=== PATIENT | male | born 1955 | race Caucasian/White ===

== ENCOUNTER → 2017-03-06 | Outpatient (CLI) | payer BC ==
[~2017-03-06] MED LIST: BARIUM SUSPENSION 2.1% (VANILLA SILQ) 450 ML PO ONE; CATHETER FLUSH 10 ML SYR IV PRN; IOHEXOL 350 MG/ML 100 ML (OMNIPAQUE 350) VIAL IV ONE; NS 100 ML (IVPB) BAG IV ONE
--- NOTE | 2017-03-06 13:27 | Diagnostic Imaging Report ---
PROCEDURE: CT abdomen and pelvis with contrast. TECHNIQUE: Multiple contiguous axial images were obtained through the abdomen and pelvis after administration of intravenous contrast. INDICATION: Prostate cancer. 100 mL of Omnipaque 350 was administered intravenously. FINDINGS: The lung bases appear clear. The liver, the gallbladder, the pancreas, the spleen, and adrenal glands appear unremarkable. The kidneys have symmetric enhancement and contrast excretion. There is no hydronephrosis. The urinary bladder appears unremarkable. The prostate gland is near the upper limits of normal in size at 4.4 CM in transverse dimension with nonspecific calcification seen. There is no bowel obstruction. There is no significant free fluid or fluid collection in the abdomen or pelvis. There is a nonspecific 0.7 cm external iliac lymph nodes on the left side, image 71 series 2, a nonspecific finding at this size. Similar sized lymph node is also seen along the right external iliac artery station. No significant enlargement of the abdominal or pelvic lymph nodes. The osseous structures demonstrate prominent degenerative changes with significant sclerotic degenerative change in the left SI joint noted. Tiny sclerotic focus along the anterior aspect of the right iliac bone near the level of the anterior inferior iliac spine measuring 8 mm is nonspecific as well as a posterior right iliac sclerotic focus measuring 4 mm. Another sclerotic focus measuring 5 mm is seen near the distal trochanter of the right femur. Bony islands versus early metastasis are main considerations. IMPRESSION: 1. Nonspecific linear prominent bilateral external iliac lymph nodes measuring up to 0.7 cm seen. This could be reactive nodes or early metastasis. Followup exams recommended. 2. Nonspecific subcentimeter sclerotic lesions in the right iliac bone and the near the right lesser trochanter. Dictated by: Dictated on workstation # [id number]
--- NOTE | 2017-03-06 17:59 | Diagnostic Imaging Report ---
Whole body bone scan. Technique: After the intravenous administration of 25 mCi of Technetium 99m MDP, whole body delayed phase bone scan images were obtained with lateral views of the head and neck and the chest regions. Indication: Prostate cancer. Findings: There are mild foci of increased activity seen in the cervical spine, shoulders, SI joints, the knees and ankles and around the sternoclavicular and chondrosternal joints suggestive of degenerative changes. No suspicious lesions of intense activity within the axial skeleton particularly to suggest metastasis. Urinary tract activity is seen as expected. The tiny sclerotic foci in the pelvis seen on CT scan are perhaps related to bony islands although they are too small for accurate assessment by bone scan. IMPRESSION: Findings likely degenerative with no scintigraphic evidence of osseous metastasis. Dictated by: Dictated on workstation # [id number]
== END ==
LOC: CARD 11:48
PROVIDERS: ATTEND Urology
DX: C61 Malignant neoplasm of prostate (principal)
CPT/HCPCS: 74177; 78306

== ENCOUNTER 2017-08-28 13:00 | Outpatient (CLI) | payer BC ==
[~2017-08-28] VITALS: Ht 175.3 cm; Wt 97.5 kg
[~2017-08-28 13:00] MED LIST changes: +AMLO5TAB2 PO; -BARIUM SUSPENSION 2.1% (VANILLA SILQ) 450 ML PO ONE; -CATHETER FLUSH 10 ML SYR IV PRN; -IOHEXOL 350 MG/ML 100 ML (OMNIPAQUE 350) VIAL IV ONE; +LOSA100T28 PO; -NS 100 ML (IVPB) BAG IV ONE
== END 2017-08-28 13:28 ==
LOC: PREOP 13:00
PROVIDERS: ATTEND Urology
DX: Z01.818 Encounter for other preprocedural examination (principal); C61 Malignant neoplasm of prostate

== ENCOUNTER 2017-08-30 06:08 | Inpatient (IN) | payer BC ==
[~2017-08-30] VITALS: Ht 175.3 cm; Wt 97.5 kg
[2017-08-30] MEDS: LACTATED RINGERS 1,000 ML IV PRN ×2 (06:30→12:59)
[2017-08-30 06:39] LABS: BASOPHILS % (AUTO) 0 % (0-10); EOSINOPHILS # (AUTO) 0.2 10^3/uL (0.0-0.3); EOSINOPHILS % (AUTO) 2 % (0-10); LYMPHOCYTES % (AUTO) 27 % (12-44); MEAN CORPUSCULAR HEMOGLOBIN 30 PG (25-34); MEAN CORPUSCULAR HGB CONC 35 G/DL (32-36); MEAN CORPUSCULAR VOLUME 85 FL (80-99); MEAN PLATELET VOLUME 10.5 FL (7.4-10.4); MONOCYTES # (AUTO) 0.6 X 10^3 (0.0-1.0); MONOCYTES % (AUTO) 7 % (0-12); NEUTROPHILS # (AUTO) 4.7 X 10^3 (1.8-7.8); NEUTROPHILS % (AUTO) 63 % (42-75); PLATELET COUNT 250 10^3/uL (130-400); RED CELL DISTRIBUTION WIDTH 12.8 % (10.0-14.5); WHITE BLOOD COUNT 7.5 10^3/uL (4.3-11.0)
[2017-08-30] MEDS ORDERED: MIDAZOLAM 2 MG/2 ML (VERSED) VIAL IV ONE (07:00)
[2017-08-30] MEDS ORDERED: fentaNYL INJECTION 100 MCG/2 ML AMP ONE ×2 (07:02→12:38)
[2017-08-30] MEDS ORDERED: DEXAMETHASONE 10 MG/ML (DECADRON) 1 ML VIAL ONE (07:02)
[2017-08-30] MEDS ORDERED: ROCURONIUM 50 MG/5 ML (ZEMURON) VIAL IV ONE ×3 (07:02→10:44)
[2017-08-30] MEDS ORDERED: ONDANSETRON 4 MG/2 ML (SDV) Z0FRAN ONE (07:02)
[2017-08-30] MEDS ORDERED: MIDAZOLAM 2 MG/2 ML (VERSED) VIAL ONE (07:02)
[2017-08-30] MEDS ORDERED: proPOfol 200 MG/20 ML (DIPRIVAN) VIAL IV ONE (07:02)
[2017-08-30] MEDS ORDERED: LIDOCAINE PF 2% 5 ML (XYLOCAINE) VIAL ONE (07:02)
[2017-08-30 07:12] VITALS: BP 165/96
[2017-08-30] MEDS ORDERED: ceFAZolin 2 GM/50 ML NS 50 ML ONE (07:34)
[2017-08-30] MEDS ORDERED: ceFAZolin 2 GM/50 ML NS 50 ML IV ONE (08:00)
[2017-08-30] MEDS ORDERED: PHENYLEPHRINE 100 MCG/ML 10 ML (ANESTHESIA) SYR ONE (08:05)
[2017-08-30] MEDS ORDERED: ceFAZolin 1,000 MG (ANCEF) VIAL IV ONE (11:45)
[2017-08-30] MEDS ORDERED: NEOSTIGMINE (BLOXIVERZ ) 1 MG/1ML 10 ML VIAL ONE (13:00)
[2017-08-30] MEDS ORDERED: GLYCOPYRROLATE 0.2 MG/ML (ROBINUL) 2 ML VIAL ONE (13:00)
[2017-08-30] MEDS ORDERED: DOCUSATE SODIUM 100 MG (COLACE) CAP PO PRN (13:15)
[2017-08-30] MEDS ORDERED: ONDANSETRON 4 MG/2 ML (SDV) Z0FRAN IV PRN (13:15)
[2017-08-30] MEDS ORDERED: ANTACID SUSP 30 ML UDC (MYLANTA) PO PRN (13:15)
[2017-08-30] MEDS ORDERED: ZOLPIDEM 5 MG (AMBIEN) TAB PO PRN (13:15)
[2017-08-30] MEDS ORDERED: KETOROLAC 30 MG/ML VIAL IV PRN (13:15)
[2017-08-30] MEDS ORDERED: SIMETHICONE 80 MG (MYLICON) CHEW PO PRN (13:15)
[2017-08-30] MEDS ORDERED: SEVOFLURANE (ULTANE) 15 ML INHAL SOLN ONE (13:28)
[2017-08-30 15:20] VITALS: BP 130/65
[2017-08-30] MEDS: LACTATED RINGERS 1,000 ML IV SCH ×2 (15:50→15:56)
[2017-08-30] MEDS: HYDROcodone/APAP 7.5 MG/325 MG (LORTAB, LORCET PLUS) TABLET PO PRN ×2 (15:56→22:04)
[2017-08-30 16:03] VITALS: BP 137/77
[2017-08-30] MEDS ORDERED: INFLUENZA TRIvalent 2017-2018 0.5 ML/45 MCG SYR IM ONE (17:15)
--- NOTE | 2017-08-30 19:02 | OPERATIVE REPORT ---
DATE OF SERVICE: 08/30/2017 PREOPERATIVE DIAGNOSIS: Stage T1c Edison 6 adenocarcinoma of the prostate. POSTOPERATIVE DIAGNOSIS: Stage T1c Rems[place] 6 adenocarcinoma of the prostate. PROCEDURE: Robot-assisted laparoscopic prostatectomy with bilateral nerve-sparing approach. SURGEON: Stacia Alcazar MD ELECTRICIAN AIRCRAFT SURGEON: Dr. Marissa Hall. BLOOD LOSS: 200 mL. COMPLICATIONS: None. SPECIMENS: Prostate and seminal vesicles. ANESTHESIA: General endotracheal anesthesia. INDICATIONS FOR THE OPERATION: All outlined in my urology clinic note, but briefly this is a 62-year-old otherwise healthy gentleman, found to have a PSA of 4.8. He then had an evaluation with a biopsy revealing 4 out of 12 cores positive for Remsen 6 cancer. The patient came in to discuss surgical management and ultimately chose to do a robotic prostatectomy. He is aware of the advantages and disadvantages, risks and benefits and has signed informed consent. He has had IV antibiotics and mechanical bowel prep and states that he has had all questions answered to his satisfaction. DESCRIPTION OF PROCEDURE: After this man prepped and draped in the usual sterile fashion, placed in a low lithotomy position and padded throughout on his elbows, hands and legs with SCDs applied. Then, subsequently we made a small incision in the midline after lifting up on the supraumbilical region and introduced a Veress needle and once we were sure we were intraperitoneal, we insufflated to 15 mL of pressure. Subsequently placed our trocars in the usual fashion under direct visualization and after doing so docked the robot and began with our typical instrumentation. The first thing that occurred was we found multiple adhesions throughout the abdomen, those were released allowing the bowel to drop back toward the head as the patient was in Trendelenburg position. Subsequent to that, I then went across the urachal remnant with electrocautery and followed the medial umbilical ligaments back to the vas deferens bilaterally. I harvested a piece of the vas deferens to bolster the bladder neck anastomosis. Once this was done, I used the third arm of the robot to put traction on the urachal remnant of the bladder and expose the space of Retzius down to the prostate. After the prostate was defatted, I opened the endopelvic fascia and took down the puboprostatic ligaments with electrocautery and then stapled across the dorsal venous complex. Subsequent to this, I then used the endovascular stapler to staple across the dorsal venous complex and then switched to a 30-degree down orientation on my lens. Once this was done, I went across the junction between the base of the bladder and the base of the prostate and when the Jones catheter that had been inserted with a Vicryl suture on the end of it was visualized. I then inserted a Isacc-Ricco into the pelvis and lifted up on the Vicryl suture placing the Jones catheter on penile traction. Subsequent to that, I could then identify ureteral orifices one across the posterior bladder neck completely exposing the seminal vesicles and ampulla. I had a very difficult time with this portion of the operation because this man had such a stuck prostate and it was very stuck posterior to the bladder and all along the seminal vesicles. I was able to completely dissect out seminal vesicles and transect the ampulla 1 cm proximal to the junction with the prostate. Once this was done, I was then able to release the Jones catheter traction. I used 1 Hem-o-daryl clip for each vascular pedicle and transected with scissors and then did a high anterior release on the neurovascular bundles and dissected those off from the 2 o'clock position on the prostate all the way to the 10 o'clock position on the contralateral prostate from the base of the prostate all the way to the apex. Once that neurovascular veil was released and I used minimal cautery doing that, I then switched back to a 0-degree lens. I then replaced the Jones catheter that I previously removed and took down what was left of the dorsal venous complex and dissected out the longest urethral stump possible. I then transected that stump and placed the prostate in an EndoCatch bag for later removal. At this point, we irrigated until clear and saw 2 areas that were bleeding, stopped those with a 4-0 Monocryl in a [id number] fashion. Those needles were removed from the abdomen and had an accurate sponge and needle count at this point. I then introduced into the abdomen 2/8 and 1/2 inch pieces of 2-0 Monocryl tied together and sutured across the piece of the vas deferens to bolster the bladder neck anastomosis. Starting at the 6 o'clock position on the bladder neck and suturing the same position on urethral stump, then a running suture on the left with a blue suture on the right with a clear suture and at the 12 o'clock position, I transitioned my stitch across the midline and finished my sewing over a 20-Peruvian Silastic catheter with 10 mL placed in the balloon. After tying down the sutures watertight and removing the needles from the abdomen and having an accurate sponge and needle count, I then tied down those sutures watertight, irrigated the bladder until clear and saw no leak. We then removed the EndoCatch bag in the midline for later removal and I was then able to place a 19-Peruvian Hermes drain next to the anastomosis brought in the ____ site in the left lower quadrant and sutured in place with a 2-0 silk interrupted suture. Subsequent to this, we undocked the robot, removed all ports and extended our incision in the midline and removed the prostate. We then grasped the anterior rectus fascia and closed with 4 sutures with interrupted #1 Vicryl in a [id number]-[id number] fashion. Once we checked to make sure by palpation we had not grabbed any bowel underneath and those were tied down watertight, we irrigated all wounds, irrigated the catheter to a clear, so no clots and then closed the skin with a 4-0 Monocryl in a subcuticular fashion and then placed Dermabond on the wounds. The patient was then extubated and transported to recovery in excellent condition. There were no complications encountered. Job ID: [id number] DocumentID: [id number] Dictated Date: 08/30/2017 13:31:44 Hvac Maintenance Technician Date: 08/30/2017 16:09:50 Dictated By: CAITLIN ALCAZAR MD
[2017-08-30 19:52] VITALS: BP 133/68
[2017-08-30] MEDS: POLYETHYLENE GLYCOL 17 GM (MIRALAX) PACK PO SCH (20:47)
[2017-08-31] VITALS: BP 160/80
[2017-08-31 04:00] VITALS: BP 132/72
[2017-08-31] MEDS ORDERED: IBUPROFEN 600 MG (MOTRIN) TAB PO PRN (05:45)
[2017-08-31 07:37] VITALS: BP 150/81
[2017-08-31] MEDS: POLYETHYLENE GLYCOL 17 GM (MIRALAX) PACK PO SCH (09:30)
--- NOTE | 2017-08-31 10:24 | Progress Note-Urology ---
Progress Note-Urology Progress Notes/Assess & Plan Progress/Assessment & Plan DOING VERY WELL. HEMOVAC 30CC. HOME WITH RX AND INSTRUCTIONS Final Diagnosis CA PROSTATE LAURITA PALM MD Aug 31, 2017 10:24 am
--- NOTE | 2017-08-31 10:28 | Discharge Inst-Urology ---
Discharge Inst-Urology Discharge Medications New, Converted, or Re-newed RX: RX given to Patient/Fam Patient Instructions/Follow Up Plan DC Hemovac and discharge patient with Jones and leg bag day time and large bag night time with instructions Office 10 days at 9am to DC Jones and 2 weeks later to see me, rest till then Keep bowels soft and moving Showers no baths Increase oral fluids for 48 hours and then as needed. Diet as tolerated. If questions or concerns contact your physician Or seek help at emergency department. LAURITA PALM MD Aug 31, 2017 10:28 am
[2017-08-31] MEDS ORDERED: CIPROFLOXACIN 500 MG (CIPRO) TABLET PO SCH (11:00)
== END 2017-08-31 12:00 | disposition home or self-care (01) | DRG 708 ==
LOC: 4TH 06:08 → SURG 06:09 → 4TH 15:06
PROVIDERS: ADMIT Urology; ATTEND Urology
PROC: 8E0W4CZ Robotic Assisted Procedure of Trunk Region, Percutaneous Endoscopic Approach (ICD-10-PCS; 2017-08-30)
PROC: 0VT04ZZ Resection of Prostate, Percutaneous Endoscopic Approach (ICD-10-PCS; principal; 2017-08-30 07:47)
DX: C61 Malignant neoplasm of prostate (principal); I10 Essential (primary) hypertension
CPT/HCPCS: 36415; 85025; 87081; 94664

== ENCOUNTER → 2021-04-18 | Outpatient (CLI) | payer BC ==
[~2021-04-18] MED LIST changes: +AMLO-250 PO; -AMLO5TAB2 PO; -LOSA100T28 PO; +LOSA100T57 PO
== END ==
LOC: LABNPT 12:43
PROVIDERS: ATTEND Nurse Practitioner Family
DX: N39.0 Urinary tract infection, site not specified (principal)
CPT/HCPCS: 87077; 87088

== ENCOUNTER → 2021-04-27 | Outpatient (CLI) | payer BC ==
--- NOTE | 2021-04-27 15:39 | Diagnostic Imaging Report ---
PROCEDURE: CT abdomen and pelvis without contrast. TECHNIQUE: Multiple contiguous axial images were obtained through the abdomen and pelvis without the use of intravenous contrast. Auto Exposure Controls were utilized during the CT exam to meet ALARA standards for radiation dose reduction. INDICATION: Abdominal pain. COMPARISON: 03/06/2017. FINDINGS: A few left-sided renal parapelvic cysts are stable. There is no hydronephrosis and no radiopaque ureteral calculus. There is a punctate nonobstructing 1 mm stone within a left renal upper pole calyx. No perinephric or periureteric edema. No ureteral stone. The bladder was largely empty. The prostate is absent. The pelvic sidewalls and inguinal canals appear normal. No abdominal/pelvic mesenteric or retroperitoneal lymphadenopathy. The unopacified liver, spleen, adrenals, pancreas, gallbladder, and bile ducts are unremarkable. The aorta is nonaneurysmal. There is no small or large bowel obstruction. There is no appendicitis or diverticulitis. No ascites, abscess, hematoma, or acute fluid collection. There is no acute or suspect bony lesion. IMPRESSION: Punctate nonobstructing 1 mm left renal stone. Left renal parapelvic cysts, mild stable, and chronic. No hydro or ureteral calculus. Absent prostate with no abdominal/pelvic adenopathy or suspicious mass Dictated by: Dictated on workstation # [id number]
== END ==
LOC: RAD 13:53
PROVIDERS: ATTEND Nurse Practitioner Family
DX: N20.0 Calculus of kidney (principal); N28.1 Cyst of kidney, acquired; R74.8 Abnormal levels of other serum enzymes; Z90.79 Acquired absence of other genital organ(s)
CPT/HCPCS: 74176

== ENCOUNTER 2021-06-04 16:44 | Emergency (ER) | payer BC ==
[2021-06-04] MEDS ORDERED: KETOROLAC 30 MG/ML VIAL IVP ONE (17:00)
[2021-06-04] MEDS ORDERED: LACTATED RINGERS 1,000 ML IV SCH (17:00)
[2021-06-04] MEDS ORDERED: ONDANSETRON 4 MG/2 ML (SDV) Z0FRAN ONE (17:19)
[2021-06-04 17:22] LABS: BASOPHILS % (AUTO) 0 % (0-10); EOSINOPHILS # (AUTO) 0.2 10^3/uL (0.0-0.3); EOSINOPHILS % (AUTO) 2 % (0-10); HEMATOCRIT 44 % (40-54); HEMOGLOBIN 14.5 g/dL (13.3-17.7); LYMPHOCYTES # (AUTO) 1.6 10^3/uL (1.0-4.0); LYMPHOCYTES % (AUTO) 16 % (12-44); MEAN CORPUSCULAR HEMOGLOBIN 31 pg (25-34); MEAN CORPUSCULAR HGB CONC 33 g/dL (32-36); MEAN CORPUSCULAR VOLUME 92 fL (80-99); MEAN PLATELET VOLUME 10.3 fL (9.0-12.2); MONOCYTES # (AUTO) 0.3 10^3/uL (0.0-1.0); MONOCYTES % (AUTO) 3 % (0-12); NEUTROPHILS # (AUTO) 7.6 10^3/uL (1.8-7.8); NEUTROPHILS % (AUTO) 79 % (42-75); PLATELET COUNT 279 10^3/uL (130-400); WHITE BLOOD COUNT 9.7 10^3/uL (4.3-11.0)
[2021-06-04] MEDS ORDERED: ONDANSETRON 4 MG/2 ML (SDV) Z0FRAN IVP ONE (17:30)
--- NOTE | 2021-06-04 17:33 | ED GU-Female ---
General Chief Complaint: - Urinary Stated Complaint: UNABLE TO URINATE Source: patient Exam Limitations: no limitations (CHUY MAGUIRE APRN) History of Present Illness Date Seen by Provider: Jun 04, 2021 Time Seen by Provider: 17:32 Initial Comments To ER with reports of inability to urinate. This was a sudden onset of suprapubic pain at about 3 PM today. He feels the urge to urinate but only dribbles when he does. He did receive an injection of Toradol and oral Flomax this morning for a known left-sided kidney stone measuring [address] scan April 27 here. No fevers or chills. Timing/Duration: just prior to arrival, getting worse Severity/Quality: moderate Location: suprapubic Radiation: none Activities at Onset: none Prior Genitourinary Problems: none Associated Symptoms: denies symptoms (CHUY MAGUIRE APRN) Allergies and Home Medications Allergies Coded Allergies: No Known Drug Allergies (Unverified , 08/28/17) Home Medications Amlodipine Besylate 5 Mg Tablet, 5 MG PO DAILY, (Reported) Losartan Potassium 100 Mg Tablet, 100 MG PO DAILY, (Reported) Patient Home Medication List Home Medication List Reviewed: Yes (CHUY MAGUIRE APRN) Review of Systems Review of Systems Constitutional: see HPI EENTM: see HPI Respiratory: no symptoms reported Cardiovascular: no symptoms reported Genitourinary: see HPI Musculoskeletal: no symptoms reported Skin: no symptoms reported Psychiatric/Neurological: No Symptoms Reported Endocrine: No Symptoms Reported Hematologic/Lymphatic: No Symptoms Reported (CHUY MAGUIRE APRN) Past W[place]jeie-Psbtrf-Grpqxb Hx Patient Social History Tobacco Use?: No Substance use?: No Alcohol Use?: No Pt feels they are or have been: No (CHUY MAGUIRE APRN) Seasonal Allergies Seasonal Allergies: No (CHUY MAGUIRE APRN) Past Medical History Surgeries: Yes (L TKR, CATARACT LEFT EYE, FINGER, L KNEE SCOPE) Respiratory: No Currently Using CPAP: No Currently Using BIPAP: No Cardiac: Yes Hypertension Neurological: No Reproductive Disorders: No Sexually Transmitted Disease: No HIV/AIDS: No Prostate Problems Gastrointestinal: No Musculoskeletal: No Endocrine: No Loss of Vision: Right Hearing Impairment: Denies Cancer: Yes Prostate Did You Recieve Any Treatments: No Psychosocial: No Integumentary: No Blood Disorders: No Adverse Reaction/Blood Tranf: No (N/A) (CHUY MAGUIRE APRN) Physical Exam Vital Signs Vital Signs - First Documented 06/04/21 17:03 Temp 36.7 Pulse 107 Resp 20 B/P (MAP) 157/92 (113) Pulse Ox 98 O2 Delivery Room Air (SHERWIN PRIETO MD) Vital Signs Capillary Refill : (CHUY MAGUIRE APRN) Height, Weight, BMI Height: 5'9.00" Weight: 215lbs. 0.0oz. 97.472337dh; 31.8 BMI Method: General Appearance: WD/WN, mild distress HEENT: PERRL/EOMI, normal ENT inspection Neck: non-tender, full range of motion Respiratory: no respiratory distress, no accessory muscle use Gastrointestinal: normal bowel sounds, soft, tenderness Extremities: normal range of motion, non-tender Neurologic/Psychiatric: alert, normal mood/affect, oriented x 3 Skin: normal color, warm/dry (CHUY MAGUIRE APRN) Progress/Results/Core Measures Suspected Sepsis SIRS Temperature: Pulse: Respiratory Rate: Laboratory Tests 06/04/21 17:14: White Blood Count 9.7 Blood Pressure / Mean: Laboratory Tests 06/04/21 17:14: Creatinine 1.35H, Platelet Count 279, Total Bilirubin 0.9 (CHUY MAGUIRE APRN) Results/Orders Vital Signs/I&O Capillary Refill : (CHUY MAGUIRE APRN) Diagnostic Imaging Diagonstic Imaging: CT Comments NAME: CALLIE ORTEGA [facility] REC#: [id number] PT STATUS: REG ER : 1955 PHYSICIAN: CHUY MAGUIRE APRN ADMIT DATE: 06/04/21/ER Draft Date of Exam:06/04/21 CT ABD/PELVIS WO(KIDNEY STONE) PROCEDURE: CT urinary tract, rule out kidney stone. TECHNIQUE: Multiple contiguous axial images were obtained through the abdomen and pelvis without the use of intravenous contrast. Auto Exposure Controls were utilized during the CT exam to meet ALARA standards for radiation dose reduction. INDICATION: Suprapubic pain. COMPARISON: 04/27/2021. FINDINGS: Calcified granuloma within the lingula. Mild bibasilar scarring and/or atelectasis. The unenhanced liver is unremarkable. Calcified splenic granuloma. Otherwise, the unenhanced spleen is unremarkable. The adrenal glands are unremarkable. The pancreas is unremarkable. The gallbladder is unremarkable. The bilateral kidneys and ureters are unremarkable. No aneurysmal dilatation of the abdominal aorta. The urinary bladder is unremarkable. The prostate gland is not visualized. Small fat-containing bilateral inguinal hernias. Mild colonic diverticulosis. However, there is focal mural thickening with adjacent inflammatory stranding noted associated with the proximal sigmoid colon. A tiny locule of gas is identified immediately anterior to dislocation which is not definitively within the lumen of the bowel. Tiny amount of additional free air is identified within the abdomen. No focal fluid collection. What is felt to relate to the appendix is unremarkable. No bowel obstruction. No significant adenopathy. No free air. Scattered osseous degenerative changes without acute osseous abnormality. IMPRESSION: Findings concerning for acute diverticulitis involving the proximal sigmoid colon. Small perforation is suspected as a small amount of free air is identified throughout the abdomen and pelvis. No abscess formation. Evidence of chronic granulomatous disease. Additional findings as above. Findings discussed with Chuy Maguire APRN at 1833 on 06/04/2021. Critical finding Dictated on workstation # [id number] Dict: 06/04/21 182 Trans: 06/04/21 184 [facility] [id number] Interpreted by: MARISABEL CARY MD Electronically signed by: (CHUY MAGUIRE APRN) Departure Communication (Admissions) 190-Will admit for the perforated diverticulitis on Zosyn plus Flagyl. We have no beds here Dr. Dickey has accepted the patient to [facility]. (CHUY MAGUIRE APRN) Impression Primary Impression: Diverticulitis Disposition: 01 HOME, SELF-CARE Condition: Stable Transfer Transfer Reason: Diversion Time Spoke to Accepting Phy: 19:23 (CHUY MAGUIRE APRN) Departure-Patient Inst. Referrals: EPHRAIM CORRAL DO (PCP/Family) Primary Care Physician ATTENDING PHYSICIAN NOTE: I was physically present as attending physician in the emergency department during the care of this patient, but I was not directly involved in the decision making or delivery of care for this patient. (SHERWIN PRIETO MD) CHUY MAGUIRE APRN Jun 04, 2021 17:33 SHERWIN PRIETO MD Jun 06, 2021 20:30
[2021-06-04 17:46] LABS: ALBUMIN 4.4 GM/DL (3.2-4.5); POTASSIUM 4.2 MMOL/L (3.6-5.0)
[2021-06-04 17:47] LABS: CALCIUM 10.2 MG/DL (8.5-10.1)
[2021-06-04 17:48] LABS: TOTAL PROTEIN 7.5 GM/DL (6.4-8.2)
[2021-06-04 17:50] LABS: BILIRUBIN,TOTAL 0.9 MG/DL (0.1-1.0)
[2021-06-04 17:52] LABS: CREATININE SERUM 1.35 MG/DL (0.60-1.30)
[2021-06-04] MEDS ORDERED: PIPERACILLIN SODIUM/TAZOBACTAM 4.5 GM in NS (IVPB) 100 ML IV ONE (18:45)
[2021-06-04] MEDS ORDERED: fentaNYL INJ 100 MCG/2 ML AMP IVP ONE (18:45)
--- NOTE | 2021-06-04 18:47 | Diagnostic Imaging Report ---
PROCEDURE: CT urinary tract, rule out kidney stone. TECHNIQUE: Multiple contiguous axial images were obtained through the abdomen and pelvis without the use of intravenous contrast. Auto Exposure Controls were utilized during the CT exam to meet ALARA standards for radiation dose reduction. INDICATION: Suprapubic pain. COMPARISON: 04/27/2021. FINDINGS: Calcified granuloma within the lingula. Mild bibasilar scarring and/or atelectasis. The unenhanced liver is unremarkable. Calcified splenic granuloma. Otherwise, the unenhanced spleen is unremarkable. The adrenal glands are unremarkable. The pancreas is unremarkable. The gallbladder is unremarkable. The bilateral kidneys and ureters are unremarkable. No aneurysmal dilatation of the abdominal aorta. The urinary bladder is unremarkable. The prostate gland is not visualized. Small fat-containing bilateral inguinal hernias. Mild colonic diverticulosis. However, there is focal mural thickening with adjacent inflammatory stranding noted associated with the proximal sigmoid colon. A tiny locule of gas is identified immediately anterior to dislocation which is not definitively within the lumen of the bowel. Tiny amount of additional free air is identified within the abdomen. No focal fluid collection. What is felt to relate to the appendix is unremarkable. No bowel obstruction. No significant adenopathy. No free air. Scattered osseous degenerative changes without acute osseous abnormality. IMPRESSION: Findings concerning for acute diverticulitis involving the proximal sigmoid colon. Small perforation is suspected as a small amount of free air is identified throughout the abdomen and pelvis. No abscess formation. Evidence of chronic granulomatous disease. Additional findings as above. Findings discussed with Black Maguire APRN at 1833 on 06/04/2021. Critical finding Dictated by: Dictated on workstation # [id number]
[2021-06-04 19:21] LABS: BILIRUBIN,URINE NEGATIVE (NEGATIVE); CLARITY,URINE CLEAR; COLOR,URINE YELLOW; GLUCOSE, URINE (UA) NEGATIVE (NEGATIVE); KETONES,URINE NEGATIVE (NEGATIVE); LEUKOCYTE ESTERASE ,URINE NEGATIVE (NEGATIVE); NITRITE,URINE NEGATIVE (NEGATIVE); PROTEIN,URINE NEGATIVE (NEGATIVE)
[2021-06-04 19:35] LABS: BACTERIA,URINE TRACE /HPF; RBC,URINE 0-2 /HPF
[2021-06-04 19:50] VITALS: BP 142/87
== END 2021-06-04 19:50 | disposition short-term general hospital (02) ==
LOC: EDUNIT# 16:44 → ER 16:46
DX: K57.32 Diverticulitis of large intestine without perforation or abscess without bleeding (principal); I10 Essential (primary) hypertension; Z79.899 Other long term (current) drug therapy
CPT/HCPCS: 36415; 74176; 80053; 81000; 85025

== ENCOUNTER → 2021-11-23 | Outpatient (CLI) | payer BC ==
--- NOTE | 2021-11-23 10:24 | Diagnostic Imaging Report ---
MRI RT LOWER EXT JOINT W/O TECHNIQUE: Multiplanar, multisequence MR imaging of the right knee was performed without contrast. COMPARISON: None available. INDICATION: Right knee pain. FINDINGS: MENISCI Medial meniscus: Degenerative free edge macerated tearing is present throughout the medial meniscus. There is also superimposed horizontal cleavage tear in the posterior horn. No parameniscal cyst. Lateral meniscus: There is a small amount of degenerative free edge fraying in the body of the lateral meniscus. LIGAMENTS ACL: Intact. PCL: Intact. MCL: Intact. LCL: The lateral collateral ligamentous complex is intact. EXTENSOR MECHANISM The extensor mechanism is intact. CARTILAGE Medial compartment: There is a broad region of full-thickness articular cartilage loss throughout the anterior and central weightbearing aspect of the medial femoral compartment. A small amount of subchondral bone marrow edema is present. Lateral compartment: Full-thickness chondral loss occupies a 8 x 8 mm region in the posterior weightbearing aspect of the lateral femoral condyle. Patellofemoral compartment: Chondral thinning is present throughout the patellofemoral compartment. BONE No fracture, stress fracture or osteonecrosis. SOFT TISSUE Large knee joint effusion with moderate synovitis that is likely reactive in nature due to the severe degenerative arthritis. No Frye's cyst. IMPRESSION: 1. 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 2. Degenerative macerated tearing is present throughout the medial meniscus. 3. Large knee joint effusion with synovitis is likely reactive in nature due to the advanced osteoarthritis. Dictated by: Dictated on workstation # [id number]
== END ==
LOC: RAD 08:00
PROVIDERS: ATTEND Nurse Practitioner Family
DX: S83.241A Other tear of medial meniscus, current injury, right knee, initial encounter (principal); M17.11 Unilateral primary osteoarthritis, right knee; X58.XXXA Exposure to other specified factors, initial encounter
CPT/HCPCS: 73721